=== PATIENT | male | born 1990 ===

== ENCOUNTER → 2017-05-04 10:36 | Outpatient (CLI) | payer OTHER | END | disposition home or self-care (01) | LOC: LAB 10:36 | DX: K50.00 Crohn's disease of small intestine without complications (principal); K30 Functional dyspepsia; R10.13 Epigastric pain; R19.7 Diarrhea, unspecified; R11.0 Nausea ==

== ENCOUNTER 2017-07-21 15:31 | Emergency (ER) | payer OTHER ==
[~2017-07-21] VITALS: Ht 182.9 cm; Wt 86.2 kg
[2017-07-21] MEDS ORDERED: CARAFATE1 GM (15:54)
== END 2017-07-22 13:26 | disposition home or self-care (01) ==
LOC: ER 15:31
DX: K52.9 Noninfective gastroenteritis and colitis, unspecified (principal)

== ENCOUNTER 2017-07-28 09:21 | Outpatient (CLI) | payer OTHER ==
[~2017-07-28 09:21] MED LIST: CARAFATE1 GM
== END 2017-07-28 09:26 | disposition home or self-care (01) ==
LOC: LAB 09:21
DX: K50.00 Crohn's disease of small intestine without complications (principal); R11.0 Nausea; K29.80 Duodenitis without bleeding

== ENCOUNTER 2021-09-28 19:40 | Emergency (ER) | payer OTHER ==
[~2021-09-28] VITALS: Ht 182.9 cm; Wt 68.0 kg
[2021-09-28] MEDS ORDERED: [UNRECOGNIZED DRUG - OTHER] (21:06)
[2021-09-28] MEDS ORDERED: METAXALONE (21:07)
[2021-09-28] MEDS ORDERED: ZOFRAN (21:07)
[2021-09-28] MEDS ORDERED: PANADOL (21:08)
[2021-09-28] MEDS ORDERED: NEURONTIN 100 MG (21:08)
[2021-09-28] MEDS ORDERED: PRENISONA (21:09)
== END 2021-09-29 19:59 | disposition home or self-care (01) ==
LOC: ER 19:40
DX: K52.9 Noninfective gastroenteritis and colitis, unspecified (principal); Z88.6 Allergy status to analgesic agent; R07.9 Chest pain, unspecified; J93.83 Other pneumothorax; Z91.041 Radiographic dye allergy status